=== PATIENT | male | born 1970 | race African-American/Black ===

== ENCOUNTER 2024-04-23 04:49 | Inpatient (IN) | payer OTHER, SELFPAY ==
[2024-04-23] MEDS ORDERED: HYDROcodone/Acetaminophen 5/325 mg Tablet ONE (05:17)
[2024-04-23 06:00] LABS: #Basophils 0.06 10x3/uL (0.0-0.2); %Basophils 0.5 % (0.0-1.0); %Eosinophils 0.5 % (0.0-10.0); %Lymphocytes 23.8 % (21.0-51.0); %Monocytes 7.5 % (0.0-10.0); %Neutrophils 67.4 % (42.0-75.0); Hematocrit 35.6 % (42.0-52.0); Hemoglobin 11.1 g/dL (14.0-18.0); Mean Corpuscular HGB CONC 31.2 g/dL (32.0-36.0); Mean Corpuscular Hemoglobin 24.6 pg (27.0-31.0); Mean Corpuscular Volume 78.9 fL (78.0-98.0); Mean Platelet Volume 10.3 fL (7.4-10.4); Platelet Count 582 10x3/uL (130-400); RBC Distribution Width 14.4 % (11.5-14.5); Red Blood Cell (RBC) Count 4.51 mill/uL (4.70-6.10)
[2024-04-23 06:19] LABS: INR-International Normal Ratio 1.1; Prothrombin Time 14.6 sec (12.0-14.7)
[2024-04-23 06:20] LABS: PTT 39.1 sec (22.9-36.1)
[2024-04-23 06:30] LABS: Bacteria/HPF None Seen HPF (None Seen); Bilirubin Negative (Negative); Blood, Urine 1+ (Negative); CAUTI Indications for Culture Pelvic or flank pain; Clarity Clear (Clear); Glucose, Urine (Dipstick) Normal (Negative); Ketone, Urine Negative (Negative); Leukocyte Negative Leu/uL (Negative); Nitrite Negative (Negative); Protein, Urine (Dipstick) 20 mg/dL (Neg-Trace); Specific Gravity, Urine 1.025 (1.002-1.036); Squamous Epithelial 0-3 HPF (0-3); WBC/HPF 0-3 HPF (0-3)
[2024-04-23 06:31] LABS: Troponin I Less than 0.010 ng/mL (< 0.028)
[2024-04-23 06:34] LABS: ALT (SGPT) 8 U/L (8-55); AST (SGOT) 9 U/L (5-34); Albumin 2.5 g/dL (3.5-5.0); Alkaline Phosphatase 84 U/L (40-110); Anion Gap 12 mmol/L (10-20); BUN (Urea Nitrogen) 11 mg/dL (8.4-25.7); Bilirubin, Total 0.3 mg/dL (0.2-1.2); Calc. Creatinine Clearance 0 mL/min (70-130); Calcium 9.5 mg/dL (7.8-10.44); Carbon Dioxide 27 mmol/L (22-29); Chloride 103 mmol/L (98-107); Estimated GFR 104; Globulin 5.3 g/dL (2.4-3.5); Glucose 127 mg/dL (70-105); Lipase 9 U/L (8-78); Potassium 4.1 mmol/L (3.5-5.1); Protein, Total 7.8 g/dL (6.0-8.3); Sodium 138 mmol/L (136-145)
[2024-04-23 06:35] LABS: Urine Culture Reflex No No
[2024-04-23 10:24] LABS: Troponin I 0.014 ng/mL (< 0.028)
[2024-04-23] MEDS ORDERED: Iopamidol-370 76% 500 ML MDV (1 ML CHARGE) ONE (10:31)
[2024-04-23] MEDS ORDERED: traMADol HCl 50 MG TAB ONE ×2 (11:27→17:48)
[2024-04-23] MEDS: traMADol HCl 50 MG TAB PO PRN (11:38)
[2024-04-23 13:58] LABS: Troponin I 0.015 ng/mL (< 0.028)
[2024-04-23] MEDS ORDERED: ALPRAZolam 1 MG TAB ONE (17:40)
[2024-04-23] MEDS ORDERED: ALPRAZolam 0.25 MG TAB ONE (17:46)
[2024-04-23] MEDS: ALPRAZolam 0.25 MG TAB PO PRN (17:51)
[2024-04-23 19:53] VITALS: BMI 21.1
[2024-04-23] MEDS: Ketorolac Tromethamine 30 MG (1 mL) VIAL IVP SCH (21:53)
[2024-04-24 06:00] LABS: Cardiac Risk 4.1 (Less than 4.5)
[2024-04-24] MEDS: Lidocaine 4% Patch TD SCH ×2 (11:14)
[2024-04-24 12:30] VITALS: BMI 21.1
[2024-04-24] MEDS ORDERED: Lidocaine 1% w/Epinephrine 1:100K 20 ML VIAL ONE (13:34)
[2024-04-24] MEDS ORDERED: Midazolam HCl 2 mg/2 ml Vial ONE (13:34)
[2024-04-24] MEDS ORDERED: fentaNYL 50 mcg/mL 1 mL Vial ONE (13:34)
[2024-04-24] MEDS ORDERED: Sodium Bicarbonate 2.5 MEQ/5 ML SDV ONE (13:35)
[2024-04-24] MEDS: FLU (Fluarix Triv) TS24-25(6MOS UP)/PF 45 MCG/0.5 ML Syringe IM ONE (18:11)
[2024-04-24] MEDS: Transdermal Patch Removal TOP SCH (22:16)
[2024-04-25 09:35] VITALS: BP 123/82; TEMP 98.6
[2024-04-25] MEDS: Lorazepam 2 MG/ML VIAL SLOW IVP PRN (12:28)
== END 2024-04-25 14:16 | disposition home or self-care (01) | DRG 204 ==
LOC: ERS 04:49 → ERHOLD 09:01 → OBS 19:46 → OBSVTOIN 04-24 18:12
PROVIDERS: ADMIT Internal Medicine; ATTEND Hospitalist
PROC: 0BBC3ZX Excision of Right Upper Lung Lobe, Percutaneous Approach, Diagnostic (ICD-10-PCS; principal; 2024-04-24)
DX: R91.8 Other nonspecific abnormal finding of lung field (principal); I10 Essential (primary) hypertension; F17.210 Nicotine dependence, cigarettes, uncomplicated; K76.89 Other specified diseases of liver; J43.9 Emphysema, unspecified; Z79.899 Other long term (current) drug therapy; Z71.6 Tobacco abuse counseling
CPT/HCPCS: 32408; 36415; 70553; 71045; 71260; 71275; 74174; 74177; 76376; 77012; 80053; 80061; 81001; 83690; 83880; 84484; 85025; 85610; 85730; 88305; 88333; 88334; 88341; 88342; 93005; 94760; 96374; 99152; 99153; G0378; J1885; J2060; J2250; J3010; Q9967

== ENCOUNTER 2024-07-15 11:00 | Outpatient (CLI) | payer OTHER | END 2024-07-15 11:01 | disposition home or self-care (01) | LOC: PET 11:00 | PROVIDERS: ATTEND Internal Medicine Hematology & Oncology | DX: C34.11 Malignant neoplasm of upper lobe, right bronchus or lung (principal); R97.8 Other abnormal tumor markers; J94.8 Other specified pleural conditions | CPT/HCPCS: 78815; A9552 ==

== ENCOUNTER 2024-07-29 11:21 | Day surgery (SDC) | payer OTHER ==
[2024-07-29] MEDS ORDERED: Acetaminophen 500 MG TAB ONE (12:19)
[2024-07-29] MEDS: Acetaminophen 500 MG TAB PO SCH (12:20)
[2024-07-29] MEDS ORDERED: diphenhydrAMINE 25 MG CAP ONE (12:20)
[2024-07-29] MEDS: diphenhydrAMINE 25 MG CAP PO SCH (12:21)
[2024-07-29 17:30] VITALS: BP 117/67; TEMP 99.7
== END 2024-07-29 17:32 | disposition home or self-care (01) ==
LOC: ONC/OP 11:21
PROVIDERS: ATTEND Internal Medicine Hematology & Oncology
DX: D64.9 Anemia, unspecified (principal); D69.6 Thrombocytopenia, unspecified
CPT/HCPCS: 36430; 86850; 86900; 86901; P9016